=== PATIENT | male | born 1995 | race American Indian/Alaskan Native ===

== ENCOUNTER 2021-04-16 08:01 | Emergency (ER) | payer OTHER ==
[2021-04-16] MEDS ORDERED: Sodium Chloride 0.9% 1,000 ML IV ONE (08:02)
[2021-04-16] MEDS ORDERED: fentaNYL 100 MCG/2 ML SDV IVPUSH ONE (08:16)
[2021-04-16] MEDS ORDERED: Sodium Chloride 0.9% 1,000 ML IV SCH ×2 (08:20→09:03)
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
[2021-04-16 08:53] LABS: ANION GAP 18.8 mEq/L (7-13); CHLORIDE,CL 108 mmol/L (98-107); SODIUM,NA 145 mmol/L (136-145)
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
== END 2021-04-16 10:50 | disposition home or self-care (01) ==
LOC: DL.ED 08:01
DX: M25.551 Pain in right hip (principal); M89.8X8 Other specified disorders of bone, other site; F10.129 Alcohol abuse with intoxication, unspecified; Y90.8 Blood alcohol level of 240 mg/100 ml or more; V49.49XA Driver injured in collision with other motor vehicles in traffic accident, initial encounter
CPT/HCPCS: 36415; 70450; 72170; 72192; 80053; 80307; 83735; 84484; 85025; 86140; 86850; 86900; 86901; 99283; 99284-25; J7030